=== PATIENT | male | born 1960 | race Caucasian/White ===

== ENCOUNTER 2019-06-05 11:31 | Emergency (ER) | payer SELFPAY ==
[2019-06-05] MEDS ORDERED: Ibuprofen 800 MG TAB ONE (12:27)
--- NOTE | 2019-06-05 12:43 | RAD ---
Exam: 3 views thoracic spine HISTORY: Fall. Pain. FINDINGS: Degenerative change in the distal cervical spine is incompletely evaluated 12 thoracic type vertebra. Thoracic spine vertebral body height is maintained. No fracture or malalig nment. Preserved disc space height. IMPRESSION: No fracture.
--- NOTE | 2019-06-05 12:45 | RAD ---
Exam: 2 views lumbar spine HISTORY: Pain. Injury. Fall. FINDINGS: 5 lumbar type vertebra. Vertebral body height is maintained. No fracture. No spondylolisthe sis or spondylolysis. Moderate to severe degenerative disc disease at L5-S1 loss of disc space height and osteophyte formation. There is associated endplate sclerosis. Visualized bony pelvis and sacrum are intact IMPRESSION: 1. No fracture 2. Moderate to severe degenerative change of the lumbosacral junction
== END 2019-06-05 13:02 | disposition home or self-care (01) ==
LOC: ERS 11:31
DX: S39.012A Strain of muscle, fascia and tendon of lower back, initial encounter (principal); W01.0XXA Fall on same level from slipping, tripping and stumbling without subsequent striking against object, initial encounter
CPT/HCPCS: 72072; 72100